=== PATIENT | female | born 1935 | race Caucasian/White ===

== ENCOUNTER → 2017-02-11 | Outpatient (CLI) | payer MEDICARE, OTHER ==
[~2017-02-11] MED LIST: "\\\"WATER PILL\\\""; ATOR20TA18; GABA-218; HYDR1CAP; INSU100V27; RISE35TA; [UNRECOGNIZED DRUG - REMARK]
== END ==
LOC: NWCC 10:31
PROVIDERS: ATTEND Internal Medicine
DX: L89.152 Pressure ulcer of sacral region, stage 2 (principal); E11.8 Type 2 diabetes mellitus with unspecified complications; Z72.3 Lack of physical exercise; Z87.898 Personal history of other specified conditions; E78.5 Hyperlipidemia, unspecified; I73.9 Peripheral vascular disease, unspecified; G20 Parkinson's disease; Z83.3 Family history of diabetes mellitus; Z83.79 Family history of other diseases of the digestive system; Z84.89 Family history of other specified conditions; I12.9 Hypertensive chronic kidney disease with stage 1 through stage 4 chronic kidney disease, or unspecified chronic kidney disease; N18.9 Chronic kidney disease, unspecified
CPT/HCPCS: 97597; A6210; G0463

== ENCOUNTER → 2017-02-25 | Outpatient (CLI) | payer MEDICARE, OTHER | LOC: NWCC 10:24 | PROVIDERS: ATTEND Internal Medicine | DX: L89.152 Pressure ulcer of sacral region, stage 2 (principal); Z87.898 Personal history of other specified conditions ==